=== PATIENT | male | born 1960 | race Caucasian/White ===

== ENCOUNTER 2018-05-04 08:17 | Day surgery (SDC) | payer OTHER ==
[~2018-05-04 08:17] MED LIST: Bupivacaine 0.25%/EPINEPHrine 1:200,000 10 ML SDV INJECT ONE; Bupivacaine 0.25%/EPINEPHrine 1:200,000 10 ML SDV ONE; Lactated Ringers 1,000 ML IV SCH; ceFAZolin 2 GM in Premix Bag 1 BAG IV ONE
--- NOTE | 2018-05-04 09:00 | PCM.PREANE ---
Preanesthetic Assessment - Procedure Proposed Procedure: Basal cell right cheek excision with frozen - Anesthesia/Transfusion/Family Hx Anesthesia History: Prior Anesthesia Without Reaction Family History of Anesthesia Reaction: No Transfusion History: No Prior Transfusion(s) Intubation History: Unknown Additional History: prior treatment and surgery; definitive today - Review of Systems General: No Symptoms Pulmonary: Other (intermittent smoker) Cardiovascular: No Symptoms Gastrointestinal: No Symptoms Neurological: No Symptoms Other: Reports: None - Physical Assessment NPO Status Date: 05/03/18 NPO Status Time: 22:00 Height: 6 ft Weight: 225 lb ASA Class: 2 Mental Status: Alert & Oriented x3 Airway Class: Mallampati = 2 Dentition: Reports: Normal Dentition Thyro-Mental Finger Breadths: 3 Mouth Opening Finger Breadths: 3 ROM/Head Extension: Full Lungs: Clear to Auscultation, Normal Respiratory Effort Cardiovascular: Regular Rate, Regular Rhythm, No Murmurs - Allergies Allergies/Adverse Reactions: Allergies Allergy/AdvReac Type Severity Reaction Status Date / Time No Known Allergies Allergy Verified 04/29/18 11:55 - Blood Blood Available: No - Anesthesia Plan Free Text/Narrative:: Choice of anesthetic since frozen will extend case length - per Dr. Sams Pre-Op Medication Ordered: None - Acknowledgements Anesthesia Type Planned: General Anesthesia, MAC Pt an Appropriate Candidate for the Planned Anesthesia: Yes Alternatives and Risks of Anesthesia Discussed w Pt/Guardian: Yes Pt/Guardian Understands and Agrees with Anesthesia Plan: Yes PreAnesthesia Questionnaire HEENT History: Reports: None Cardiovascular History: Reports: Other (See Below) Other Cardiovascular History: Rheumatic fever, murmur as a child Respiratory History: Reports: None Gastrointestinal History: Reports: None Genitourinary History: Reports: Prostate Disorder, Other (See Below) Other Genitourinary History: prostate ca Musculoskeletal History: Reports: None Neurological History: Reports: None Psychiatric History: Reports: None Endocrine/Metabolic History: Reports: None Hematologic History: Reports: None Immunologic History: Reports: None Oncologic (Cancer) History: Reports: Basal Cell Carcinoma, Prostate Dermatologic History: Reports: None - Infectious Disease History Infectious Disease History: Reports: Chicken Pox - Past Surgical History Head Surgeries/Procedures: Reports: None HEENT Surgical History: Reports: None Cardiovascular Surgical History: Reports: None GI Surgical History: Reports: Hernia, Abdominal, Hernia, Inguinal Male Surgical History: Reports: Prostatectomy Musculoskeletal Surgical History: Reports: Other (See Below) Other Musculoskeletal Surgeries/Procedures:: Knee repair surgery Oncologic Surgical History: Reports: None Dermatological Surgical History: Reports: Skin Biopsy - SUBSTANCE USE Smoking Status *Q: Current Some Day Smoker Tobacco Use Within Last Twelve Months: Cigars Days Per Week of Alcohol Use: 7 Number of Drinks Per Day: 1 Total Drinks Per Week: 7 Recreational Drug Use History: No - HOME MEDS Home Medications: Home Meds Aspirin 81 mg PO DAILY 07/28/16 [History] Cholecalciferol (Vitamin D3) [Vitamin D3] 2,000 units PO DAILY 04/29/18 [History ] - CURRENT (IN HOUSE) MEDS Current Meds: Current Medications Lactated Ringer's (Ringers, Lactated) 1,000 mls @ 125 mls/hr IV ASDIRECTED JARVIS Discontinued Medications Bupivacaine HCl/Epinephrine Bitart (Marcaine 0.25%/Epinephrine 1:200,000) 10 ml INJECT ONETIME ONE Stop: 05/04/18 08:01 Bupivacaine HCl/Epinephrine Bitart (Marcaine 0.25%/Epinephrine 1:200,000) Confirm Administered Dose 20 ml .ROUTE .STK-MED ONE Stop: 05/04/18 07:29 Cefazolin Sodium/Dextrose 2 gm (/ Premix) 50 mls @ 100 mls/hr IV ONETIME ONE Stop: 05/04/18 08:29
[2018-05-04] MEDS ORDERED: Dexamethasone/Tobramycin 0.1-0.3% Ophth Oint 3.5 GM Tube ONE (10:24)
[2018-05-04] MEDS ORDERED: fentaNYL 100 MCG/2 ML SDV IVPUSH PRN (10:41)
[2018-05-04] MEDS ORDERED: ceFAZolin/Dextrose,Iso-Osmotic 2 GM/50 ML Duplex Bag IV ONE (11:08)
[2018-05-04] MEDS ORDERED: Lidocaine 2% 5 ML SDV ONE (11:08)
[2018-05-04] MEDS ORDERED: fentaNYL 250 MCG/5 ML SDV ONE (11:08)
[2018-05-04] MEDS ORDERED: Propofol 200 MG/20 ML SDV ONE (11:08)
[2018-05-04] MEDS ORDERED: ePHEDrine 50 MG/ML SDV ONE (11:08)
[2018-05-04] MEDS ORDERED: Midazolam 1 MG/ML 2 ML SDV ONE (11:08)
--- NOTE | 2018-05-04 11:17 | PCM.POSTAN ---
POST ANESTHESIA ASSESSMENT - MENTAL STATUS Mental Status: Alert, Oriented - RESPIRATORY Respiratory Status: Respiratory Rate WNL, Airway Patent, O2 Saturation Stable - CARDIOVASCULAR CV Status: Pulse Rate WNL, Blood Pressure Stable - GASTROINTESTINAL GI Status: No Symptoms - POST OP HYDRATION Hydration Status: Adequate & Stable
--- NOTE | 2018-05-04 11:40 | PCM48HPAN ---
Post Anesthesia Note - EVALUATION WITHIN 48HRS OF ANESTHETIC Vital Signs in Normal Range: Yes Patient Participated in Evaluation: Yes Respiratory Function Stable: Yes Airway Patent: Yes Cardiovascular Function Stable: Yes Hydration Status Stable: Yes Pain Control Satisfactory: Yes Nausea and Vomiting Control Satisfactory: Yes Mental Status Recovered: Yes Resp Rate: 12 - COMMENTS/OBSERVATIONS Free Text/Narrative:: no anesthesia problems
[2018-05-04 13:43] VITALS: BP 111/68
--- NOTE | 2018-05-05 09:54 | PCM.OPNOTE ---
- General Post-Op/Procedure Note Date of Surgery/Procedure: 05/04/18 Operative Procedure(s): excision of right cheek basal cell 2cm total lenght with intermediate 2cm repair after frozen sections Pre Op Diagnosis: right cheek basal cell Post-Op Diagnosis: Same Anesthesia Technique: Local, MAC Primary Surgeon: Lori Sams Assembler [employer] Spider: Daphney Murcia Reason Assembler [employer] Spider Was Necessary: retraction prepping draping and closure assistance. Complications: None Condition: Good
--- NOTE | 2018-05-06 01:05 | OR ---
SURGEON: BASIM ESPAÑA MD DATE OF PROCEDURE: 05/04/2018 PREOPERATIVE DIAGNOSIS: Right cheek basal cell carcinoma. POSTOPERATIVE DIAGNOSIS: Right cheek basal cell carcinoma. PROCEDURE: Excision of right cheek basal cell carcinoma, 2 cm total length with intermediate 2 cm repair after negative frozen sections. ANESTHESIA: General LMA, local. MACHINIST TOOL AND DIE: OCTAVIO Glover REASON MACHINIST TOOL AND DIE WAS NECESSARY: Prepping, prepping, draping, and closure assistance. INDICATIONS: Mr. Bell is a 58-year-old gentleman seen today for right cheek basal cell. He previously did complete a course of Efudex, which did not completely resolve this. The risks, benefits of excision with frozen sections were discussed. The risks were including, but not limited to, bleeding, infection, damage to underlying or overlying structures, possible need for future interventions, possible scarring. PROCEDURE IN DETAIL: After informed consent was obtained and placed on the chart, the patient was brought to the operating theater and laid in supine position. After adequate general anesthesia was obtained, the area was prepped and draped and time-out was completed to confirm side and site. A 0.25% Marcaine with epinephrine was injected, lesion was excised in elliptical fashion for a total length of 2 cm. Marking stitch was placed at 12 o'clock and this was then sent for pathology for frozen sections. After frozen sections returned it was negative with the pathology of basal cell. The lesion was copiously irrigated, meticulously hemostasis, and closed using deep Monocryl stitch in a running subcuticular 4-0 Monocryl for the skin. The wound was dressed with Steri-Strips and fluffs. The intermediate repair was tolerated well. Once adequately closed and dressed, the dressings were removed. The patient was transferred to PACU in stable condition. FOLLOWUP INSTRUCTIONS: The patient will see us in clinic in approximately 1 week, or sooner if any problems, questions, or concerns. HEGGTHE / ANASTASIAL /[id number]
== END 2018-05-04 11:46 | disposition home or self-care (01) ==
LOC: MW.SDS 08:17
PROVIDERS: ATTEND Plastic Surgery
DX: C44.319 Basal cell carcinoma of skin of other parts of face (principal); F17.290 Nicotine dependence, other tobacco product, uncomplicated; Z79.82 Long term (current) use of aspirin; Z79.899 Other long term (current) drug therapy
CPT/HCPCS: 11642; 88305; 88331; J0690; J2250; J2704; J3010; J3490; 00300; A9270-GY

== ENCOUNTER 2021-12-15 10:31 | Day surgery (SDC) | payer BC, OTHER ==
[~2021-12-15 10:31] MED LIST changes: -Bupivacaine 0.25%/EPINEPHrine 1:200,000 10 ML SDV INJECT ONE; -Bupivacaine 0.25%/EPINEPHrine 1:200,000 10 ML SDV ONE; -ceFAZolin 2 GM in Premix Bag 1 BAG IV ONE
[2021-12-15] MEDS ORDERED: Lidocaine 1% 5 ML VIAL ONE (10:59)
[2021-12-15] MEDS ORDERED: Propofol 200 MG/20 ML SDV ONE ×2 (10:59→11:40)
[2021-12-15] MEDS ORDERED: fentaNYL 100 MCG/2 ML SDV ONE (10:59)
[2021-12-15] MEDS ORDERED: ePHEDrine 50 MG/ML SDV ONE (11:33)
[2021-12-15] MEDS ORDERED: Water For Injection, Sterile 20 ML ONE (11:34)
[2021-12-15] MEDS ORDERED: Lactated Ringers 1,000 ML IV SCH (12:00)
[2021-12-15 12:28] VITALS: BP 124/71; PULSE 68
== END 2021-12-15 12:39 | disposition home or self-care (01) ==
LOC: MW.SDS 10:31
PROVIDERS: ATTEND Surgery
DX: Z12.11 Encounter for screening for malignant neoplasm of colon (principal); R07.89 Other chest pain; E78.00 Pure hypercholesterolemia, unspecified; Z79.82 Long term (current) use of aspirin; Z79.899 Other long term (current) drug therapy; Z98.890 Other specified postprocedural states
CPT/HCPCS: 45378; J2704; J3010; J7120; 00812